=== PATIENT | female | born 1955 | race Caucasian/White ===

== ENCOUNTER 2020-02-15 10:22 | Outpatient (CLI) | payer OTHER ==
[~2020-02-15 10:22] MED LIST: CARAFATE SU1 G/10 ML PO; EFFEXOR XR150 MG; KLONOPIN0.5 MG/TAB PO; LEVSIN/SL0.125 MG PO; PROTONIX40 MG PO; SEROQUEL25 MG PO; SYNTHROID50 MCG; ZANTAC150 MG PO
== END 2020-02-15 10:25 | disposition home or self-care (01) ==
LOC: NUCLEAR 10:22
PROVIDERS: ATTEND Internal Medicine
DX: I49.8 Other specified cardiac arrhythmias (principal)

== ENCOUNTER 2022-05-03 09:05 | Outpatient (CLI) | payer OTHER | END 2022-05-03 09:07 | disposition home or self-care (01) | LOC: SONOGRAMA 09:05 | PROVIDERS: ATTEND Pathology Anatomic Pathology & Clinical Pathology | DX: E04.2 Nontoxic multinodular goiter (principal) ==

== ENCOUNTER 2024-11-05 09:13 | Outpatient (CLI) | payer OTHER | END 2024-11-05 09:14 | disposition home or self-care (01) | LOC: NUCLEAR 09:13 | PROVIDERS: ATTEND Internal Medicine | DX: R00.0 Tachycardia, unspecified (principal) ==